=== PATIENT | female | born 1970 | race American Indian/Alaskan Native ===

== ENCOUNTER 2021-03-03 09:41 | Emergency (ER) | payer BC ==
[2021-03-03 11:24] LABS: Mean Corpuscular HGB Conc 26 % (30-34); Platelet Count 583 K/mm3 (140-440); Red Blood Count 3.43 M/mm3 (3.65-5.03)
[2021-03-03 11:38] LABS: Hemoglobin 4.7 gm/dl (10.1-14.3)
[2021-03-03 11:39] LABS: Hematocrit 18.3 % (30.3-42.9); Mean Corpuscular Volume 53 fl (79-97); Red Cell Distribution Width 26.3 % (13.2-15.2)
[2021-03-03 11:42] LABS: Alanine Aminotransferase 5 units/L (7-56); Blood Urea Nitrogen 8 mg/dL (7-17); Calcium 8.5 mg/dL (8.4-10.2); Hemolysis Index 0
[2021-03-03 11:44] LABS: BUN/Creatinine Ratio 13
[2021-03-03] MEDS ORDERED: SODIUM CHLORIDE 0.9% 500 ML 500 ML IV ONE (11:50)
--- NOTE | 2021-03-03 12:05 | Emergency Department Report ---
ED General Adult HPI - General Chief complaint: Dizziness Stated complaint: NEED BLOOD TRANSFUSION Source: patient Mode of arrival: Ambulatory Limitations: No Limitations - History of Present Illness Initial comments: Chief complaint: "My hemoglobin is 4." HPI: This is a 50-year-old female with a history of anemia, hypertension and uterine fibroids who presents with abnormal blood work. She started with a new PCP on yesterday. Dr. Rasta Olmos contacted her. He informed her hemoglobin 4. Patient has had dizziness near syncope over the last several weeks. She has had heavy menstrual bleeding for several years. Menstrual cycles are still heavy that she wears an adult diaper. She is not currently bleeding. She has not had transfusion previously. She did require iron therapy in adolescence. -: Gradual, week(s) (Several weeks of dizziness), month(s) (Several months of fatigue), year(s) (Several years of heavy vaginal bleeding) Severity scale (0 -10): 0 Consistency: intermittent Improves with: rest Worsens with: movement Associated Symptoms: shortness of breath, other (Dizziness fatigue near syncope) - Related Data Previous Rx's Medication Instructions Recorded Last Taken Type Ciprofloxacin 0.3% (Nf) 2 ml OP Q15MIN #1 bottle 07/23/13 Unknown Rx [Ciprofloxacin OPTH] Ketorolac Ophth Soln (Nf) [Acular 1 drop OP BID PRN #1 bottle 07/23/13 Unknown Rx Ophth Soln 0.5%] Acetaminophen/Codeine 1 tab PO Q6H PRN #20 tab 01/04/14 Unknown Rx [Acetaminophen-Codeine #3 TAB] Cephalexin [Keflex] 500 mg PO BID #20 capsule 01/04/14 Unknown Rx Sulfamethoxazole/Trimethoprim 1 each PO BID #20 tablet 01/04/14 Unknown Rx [Bactrim Ds] Ferrous Sulfate [Ferrous Sulfate 1 tab PO TID 30 Days #90 03/03/21 Unknown Rx 324 MG] Allergies Allergy/AdvReac Type Severity Reaction Status Date / Time No Known Allergies Allergy Verified 03/03/21 10:02 ED Review of Systems ROS: Stated complaint: NEED BLOOD TRANSFUSION Other details as noted in HPI Comment: All other systems reviewed and negative Constitutional: denies: chills, fever, malaise Respiratory: shortness of breath Cardiovascular: palpitations. denies: chest pain Gastrointestinal: denies: abdominal pain, nausea, vomiting ED Past Medical Hx - Past Medical History Previous Medical History?: Yes Hx Hypertension: Yes (no meds) Additional medical history: Anemia, uterine fibroids, vaginal delivery x 3 - Surgical History Past Surgical History?: Yes Additional Surgical History: tubal ligation 1995 - Social History Smoking Status: Current Every Day Smoker Substance Use Type: Alcohol, Non Opiate Pain - Medications Home Medications: Home Medications Medication Instructions Recorded Confirmed Last Taken Type Ciprofloxacin 0.3% (Nf) 2 ml OP Q15MIN #1 bottle 07/23/13 Unknown Rx [Ciprofloxacin OPTH] Ketorolac Ophth Soln (Nf) [Acular 1 drop OP BID PRN #1 bottle 07/23/13 Unknown Rx Ophth Soln 0.5%] Acetaminophen/Codeine 1 tab PO Q6H PRN #20 tab 01/04/14 Unknown Rx [Acetaminophen-Codeine #3 TAB] Cephalexin [Keflex] 500 mg PO BID #20 capsule 01/04/14 Unknown Rx Sulfamethoxazole/Trimethoprim 1 each PO BID #20 tablet 01/04/14 Unknown Rx [Bactrim Ds] Ferrous Sulfate [Ferrous Sulfate 1 tab PO TID 30 Days #90 03/03/21 Unknown Rx 324 MG] ED Physical Exam - General Limitations: No Limitations General appearance: alert, in no apparent distress - Head Head exam: Present: atraumatic, normocephalic - Eye Eye exam: Present: normal appearance - ENT ENT exam: Present: mucous membranes moist - Neck Neck exam: Present: normal inspection, full ROM - Respiratory Respiratory exam: Present: normal lung sounds bilaterally. Absent: respiratory distress, wheezes, rhonchi, stridor - Cardiovascular Cardiovascular Exam: Present: normal rhythm, tachycardia, normal heart sounds. Absent: systolic murmur, diastolic murmur, rubs, gallop - GI/Abdominal GI/Abdominal exam: Present: soft, normal bowel sounds. Absent: distended, tenderness, guarding, rebound - Extremities Exam Extremities exam: Present: normal inspection - Neurological Exam Neurological exam: Present: alert, oriented X3 - Psychiatric Psychiatric exam: Present: normal affect, normal mood - Skin Skin exam: Present: warm, dry, intact, normal color. Absent: rash ED Course Vital Signs 03/03/21 03/03/21 03/03/21 09:59 12:36 14:35 Temperature 98.9 F Pulse Rate 104 H 99 H Respiratory 14 20 18 Rate Blood Pressure Blood Pressure 153/82 144/83 [Left] O2 Sat by Pulse 100 100 100 Oximetry 03/03/21 03/03/21 03/03/21 15:25 15:40 16:09 Temperature 98.5 F 98.6 F 98.7 F Pulse Rate 88 86 82 Respiratory 16 16 16 Rate Blood Pressure 148/88 148/88 150/96 Blood Pressure [Left] O2 Sat by Pulse 100 100 100 Oximetry ED Medical Decision Making - Lab Data Result diagrams: 03/03/21 18:01 03/03/21 10:48 - Medical Decision Making Microcytic anemia with mild symptoms. Suspect iron deficiency in addition to menometrorrhagia with uterine fibroids. Ms. Pires will receive 1 unit packed red blood cells. She will be discharged once transfusion is complete. I have provided referral to a and p mechanic. Also recommended that she follows up with her PCP Dr. Rasta Olmos I prescribed iron sulfate tablets. Critical care attestation.: If time is entered above; I have spent that time in minutes in the direct care of this critically ill patient, excluding procedure time. ED Disposition Clinical Impression: Microcytic anemia, Symptomatic anemia, Fibroid, uterine, Dysfunctional uterine bleeding Disposition: 01 HOME / SELF CARE / HOMELESS Is pt being admited?: No Does the pt Need Aspirin: No Condition: Stable Instructions: Preventing Iron Deficiency Anemia, Adult, Uterine Fibroids, Blood Transfusion, Adult, Care After, [id number] Prescriptions: Ferrous Sulfate [Ferrous Sulfate 324 MG] 1 tab PO TID 30 Days #90 Referrals: RASTA OLMOS MD [Primary Care Provider] - 3-5 Days LILLIANA WALLACE MD [Staff Physician] - 3-5 Days Forms: Work/School Release Form(ED)
[2021-03-03 13:01] LABS: Total Cells Counted 100
[2021-03-03 13:02] LABS: Giant Platelets Few; Hypochromasia 3+; Platelet Estimate Consistent w Auto; Target Cells Few
[2021-03-03] MEDS ORDERED: SODIUM CHLORIDE 0.9% 500 ML 500 ML ONE (15:19)
[2021-03-03 16:16] VITALS: BP 150/96
[2021-03-03 18:54] LABS: Hemoglobin 5.6 gm/dl (10.1-14.3)
== END 2021-03-04 03:26 | disposition home or self-care (01) ==
LOC: ED 09:41
DX: D50.9 Iron deficiency anemia, unspecified (principal); D64.89 Other specified anemias; D21.9 Benign neoplasm of connective and other soft tissue, unspecified; N93.8 Other specified abnormal uterine and vaginal bleeding; I10 Essential (primary) hypertension; Z98.51 Tubal ligation status; F17.200 Nicotine dependence, unspecified, uncomplicated; Z79.899 Other long term (current) drug therapy
CPT/HCPCS: 36415; 36430; 80053; 85007; 85014; 85018; 85025; 86850; 86900; 86901; 86920; 96360; 99283; J7040; P9016; 99284

== ENCOUNTER 2021-04-03 18:13 | Observation (INO) | payer BC ==
[2021-04-03] MEDS ORDERED: DOCUSATE SODIUM 100 MG CAP PO PRN (18:16)
[2021-04-03] MEDS ORDERED: ACETAMINOPHEN 325 MG TAB PO PRN (18:16)
[2021-04-03] MEDS ORDERED: SODIUM CHLORIDE 0.9% 500 ML 500 ML IV ONE (18:18)
[2021-04-03] MEDS ORDERED: NON-FORMULARY EACH (Ferrous Sulfate [Ferrous Sulfate 324 Mg] 324 MG Tablet.Dr) PO SCH (20:00)
[2021-04-03] MEDS ORDERED: FERROUS SULFATE 325 MG TAB PO SCH (20:00)
[2021-04-04] MEDS ORDERED: amLODIPine 10 MG TAB PO SCH (10:00)
[2021-04-04] MEDS ORDERED: ACETAMINOPHEN 325 MG TAB PO PRN (15:30)
[2021-04-04 15:57] LABS: Mean Corpuscular HGB Conc 28 % (30-34); Platelet Count 345 K/mm3 (140-440); Red Blood Count 4.28 M/mm3 (3.65-5.03)
[2021-04-04 15:59] LABS: Hematocrit 25.2 % (30.3-42.9); Hemoglobin 6.9 gm/dl (10.1-14.3); Mean Corpuscular Volume 59 fl (79-97); Red Cell Distribution Width 30.6 % (13.2-15.2)
[2021-04-04] MEDS ORDERED: SODIUM CHLORIDE 0.9% 500 ML 500 ML IV SCH (16:00)
[2021-04-04] MEDS ORDERED: ACETAMINOPHEN 500 MG TAB PO PRN (16:00)
[2021-04-04] MEDS ORDERED: DOCUSATE SODIUM 100 MG CAP PO PRN (16:00)
[2021-04-04 16:53] LABS: Anisocytosis 3+; Giant Platelets Few; Hypochromasia 3+; Platelet Estimate Consistent w Auto; Schistocytes 1+; Target Cells 1+; Total Cells Counted 100
[2021-04-04] MEDS: FERROUS SULFATE 325 MG TAB PO SCH ×2 (17:05→20:47)
[2021-04-04] MEDS ORDERED: ZOLPIDEM 5 MG TAB PO PRN (18:23)
--- NOTE | 2021-04-04 18:37 | Short Stay Summary ---
Short Stay Documentation Date of service: 04/04/21 Narrative H&P: This is a 50 year-old female who has a long history fo menorrhagia and fibroids. She also has a hgb of 6.7 in the office ~2weeks ago and now sates she has episodes of lightheadedness and dizziness that can interfere with her ability to work and her QOL. She's had intermittent bleeding since her office visit but today states her bleedig has increased. She admitted now for PRBC transfusion d/t symptomatic anemia - History Past Medical History: hypertension Past Surgical History: Other (BTL) Social history: smoking - Allergies and Medications Current Medications: Allergies No Known Allergies Allergy (Verified 03/03/21 10:02) Home Medications Medication Instructions Recorded Confirmed Last Taken Type Ciprofloxacin 0.3% (Nf) 2 ml OP Q15MIN #1 bottle 07/23/13 Unknown Rx [Ciprofloxacin OPTH] Ketorolac Ophth Soln (Nf) [Acular 1 drop OP BID PRN #1 bottle 07/23/13 Unknown Rx Ophth Soln 0.5%] Acetaminophen/Codeine 1 tab PO Q6H PRN #20 tab 01/04/14 Unknown Rx [Acetaminophen-Codeine #3 TAB] Cephalexin [Keflex] 500 mg PO BID #20 capsule 01/04/14 Unknown Rx Sulfamethoxazole/Trimethoprim 1 each PO BID #20 tablet 01/04/14 Unknown Rx [Bactrim Ds] Ferrous Sulfate [Ferrous Sulfate 1 tab PO TID 30 Days #90 03/03/21 Unknown Rx 324 MG] Active Medications Acetaminophen (Acetaminophen 500 Mg Tab) 1,000 mg PO Q6H PRN PRN Reason: Pain,MILD(1-3)/FEVER>100.5/KHALIL Amlodipine Besylate (Amlodipine 10 Mg Tab) 10 mg PO QDAY [facility] Docusate Sodium (Docusate Sodium 100 Mg Cap) 100 mg PO Q12H PRN PRN Reason: Constipation Ferrous Sulfate (Ferrous Sulfate 325 Mg Tab) 325 mg PO TID [facility] Last Admin: 04/04/21 17:05 Dose: 325 mg Sodium Chloride (Nacl 0.9% 500 Ml) 500 mls @ 999 mls/hr IV ONCE@1600 [facility] Stop: 04/04/21 21:00 Last Admin: 04/04/21 17:06 Dose: 999 mls/hr Medroxyprogesterone Acetate (Medroxyprogesterone Acetate 5 Mg Tab) 10 mg PO QDAY G[facility] Zolpidem Tartrate (Zolpidem 5 Mg Tab) 5 mg PO QHS PRN PRN Reason: Sleep - Physical exam General appearance: no acute distress - Hospital course Hospital course: Normal, feels better, desires discharge home - Disposition Condition at discharge: Good Disposition: 01 HOME / SELF CARE / HOMELESS - Discharge Diagnoses (1) Anemia Status: Chronic Qualifiers: Iron deficiency anemia type: chronic blood loss (2) Fibroids Status: Chronic (3) Menorrhagia Status: Acute (4) Hypertension Status: Chronic (5) Smoker Status: Chronic (6) Body mass index between 30-39, adult Status: Acute Short Stay Discharge Plan Activity: no restrictions Weight Bearing Status: Full Weight Bearing Diet: low fat, low cholesterol, low salt Additional Instructions: Continue Tranexamic acid as directed. Take iron three times a day and a stool softener as needed Follow up with: TANNER OLMOS MD [Primary Care Provider] - 7 Days LILLIANA WALLACE MD [Staff Physician] - 04/09/21 10:45 am ([place] office) KIRSTY SIDDIQUI MD [Referring] - 7 Days (To be evaluated for Iron infusion to prepare for surgery) Forms: Work/School Release Form
[2021-04-04] MEDS: medroxyPROGESTERone ACETATE 5 MG TAB PO SCH (20:46)
[2021-04-04] MEDS: amLODIPine 10 MG TAB PO SCH (21:30)
[2021-04-05 01:09] LABS: Hematocrit 28.8 % (30.3-42.9); Hemoglobin 8.2 gm/dl (10.1-14.3)
[2021-04-05 09:14] VITALS: BP 141/82
[2021-04-05] MEDS: medroxyPROGESTERone ACETATE 5 MG TAB PO SCH (10:10)
[2021-04-05] MEDS: FERROUS SULFATE 325 MG TAB PO SCH (10:11)
[2021-04-05] MEDS: amLODIPine 10 MG TAB PO SCH (10:11)
== END 2021-04-05 11:05 | disposition home or self-care (01) ==
LOC: UNDOADMOB 18:13 → 3A 18:13 → OB 04-04 11:45
PROVIDERS: ADMIT Obstetrics & Gynecology; ATTEND Obstetrics & Gynecology
DX: D21.9 Benign neoplasm of connective and other soft tissue, unspecified (principal); Z20.822 Contact with and (suspected) exposure to COVID-19; N92.0 Excessive and frequent menstruation with regular cycle; D64.9 Anemia, unspecified; F17.200 Nicotine dependence, unspecified, uncomplicated; Z68.30 Body mass index [BMI] 30.0-30.9, adult; Z98.51 Tubal ligation status
CPT/HCPCS: 36415; 36430; 85014; 85018; 85025; 86850; 86900; 86901; 86920; G0378; G0379; J7040; P9016; U0003; 85007

== ENCOUNTER 2021-05-29 06:07 | Observation (INO) | payer BC ==
[2021-05-23 10:11] LABS: Hematocrit 29.9 % (30.3-42.9); Hemoglobin 9.2 gm/dl (10.1-14.3); Mean Corpuscular HGB Conc 31 % (30-34); Mean Corpuscular Volume 67 fl (79-97); Platelet Count 325 K/mm3 (140-440); Red Blood Count 4.47 M/mm3 (3.65-5.03); Red Cell Distribution Width 29.5 % (13.2-15.2)
--- NOTE | 2021-05-23 10:55 | Anesthesia Consultation ---
Anesthesia Consult and Med Hx Date of service: 05/29/21 - Airway Anesthetic Teeth Evaluation: Good ROM Head & Neck: Adequate Mental/Hyoid Distance: Adequate Mallampati Class: Class I Intubation Access Assessment: Good - Pre-Operative Health Status ASA Pre-Surgery Classification: ASA2 Proposed Anesthetic Plan: General Nerve Block: TAP - Pulmonary Hx Smoking: Yes (Pt. has smoked for 20 years QUIT APPROX. 05/15/21) Hx Asthma: No Hx Respiratory Symptoms: No (+2FS) COPD: No Hx Pneumonia: No Hx Sleep Apnea: No - Cardiovascular System Hx Hypertension: Yes (no meds) Hx Heart Attack/AMI: No (Recent ETT/ECG; pt reports cardiac clearance) - Central Nervous System Hx Back Pain: Yes Hx Psychiatric Problems: No - Gastrointestinal Hx Gastroesophageal Reflux Disease: No - Endocrine Hx End Stage Renal Disease: No - Hematic Hx Anemia: Yes Hx Sickle Cell Disease: No - Other Systems Hx Alcohol Use: No Hx Substance Use: No Hx Cancer: No Hx Obesity: Yes
[2021-05-23 10:58] LABS: Anisocytosis 3+; Hypochromasia 2+; Total Cells Counted 100
[2021-05-23 11:00] LABS: Platelet Estimate Consistent w Auto
--- NOTE | 2021-05-27 15:31 | History and Physical Report ---
History of Present Illness Date of examination: 05/21/21 Chief complaint: Menorrhagia, fibroids, dysmenorrhea and anemia History of present illness: This is a 50 years old female who presents with menstrual disorder. The symptoms began >1 year ago. She complains of heavy bleeding and history of fibroids. Menstrual flow lasts 7 days. She complains of bleeding heavy 3/7days that requires pads and Depends . She had an US at [facility] 2019 that showed fibroids. She was scheduled to have a hysterectomy 2019 but d/t her lack of insurance she was unable to proceed as scheduled. She has a history of severe anemia d/t menorrhagia, her hgb was 4.7 and she received 1unit of PRBCs February 2021. Past History : 4 Term Births: 1 Premature Births: 1 Living Children: 2 Spont. Ab: 2 # 1 Delivery date: 1990 Weeks Gestation: 21 Delivery type: Comments: demise # 2 Delivery date: 1992 Weeks Gestation: 21 Delivery type: Sex: Male weight: 2# # 3 Delivery date: 1994 Weeks Gestation: FT Delivery type: Infant Sex: Female weight: 7# [employer] History Operations: Tubal Ligation Abnormal PAP: positive Uterine Anomaly: positive fibroids Infection History HIV Risk Eval: no Hx of STD: None Active Medications (reviewed today): tranexamic acid 650 mg tablet (tranexamic acid) Take 2 tablet by mouth three times a day as needed only take on heaviest days of menses/periods up to 5 days a month ferrous sulfate 324 mg (65 mg iron) tablet,delayed release (DR/EC) (ferrous sulfate) TAKE ONE TABLET BY MOUTH THREE TIMES A DAY amlodipine 10 mg tablet (amlodipine) ibuprofen 800 mg tablet (ibuprofen) Current Allergies (reviewed today): No known allergies Past Medical History: Reviewed history from 04/16/2021 and no changes required: Anemia Hypertension Blood Transfusion (03/03/2021) 1uPRBC Blood Transfusion (04/04/2021) 1uPRBC Past Surgical History: Reviewed history from 04/16/2021 and no changes required: Tubal Ligation Family History Summary: Reviewed history and no changes required: 05/27/2021 Other Family Member - Has No Family History of Uterine Cancer - Entered On: 04/04/2021 Other Family Member - Has No Family History of Small Bowel Cancer - Entered On: 04/04/2021 Other Family Member - Has No Family History of Stomach Cancer - Entered On: 04/04/2021 Other Family Member - Has No Family History of Pancreatic Cancer - Entered On: 04/04/2021 Other Family Member - Has No Family History of Ovarvian Cancer - Entered On: 04/04/2021 Other Family Member - Has No Family History of Kidney/Urinary Tract Cancer - Entered On: 04/04/2021 Other Family Member - Has No Family History of Spontaneous DVT-PE - Entered On: 04/04/2021 Other Family Member - Has No Family History of Colon Cancer - Entered On: 04/04/2021 Other Family Member - Has No Family History of Brain Cancer - Entered On: 04/04 Other Family Member - Has No Family History of Breast Cancer - Entered On: 04/04/2021 Other Family Member - Has No Family History of Biliary Tract Cancer - Entered On: 04/04/2021 Social History: Reviewed history from 03/23/2021 and no changes required: Patient is single Smoking History: Patient currently smokes every day. Patient has been counseled to quit. Risk Factors: Smoked Tobacco Use: Former smoker Cigarettes: Yes Year Quit: 2021 Years Since Last Quit: 0 Smokeless Tobacco Use: Never Passive Smoke Exposure: no HIV High Risk Behavior: no Exercise: yes Seatbelt Use: 100 % Alcohol Use: yes Type: occ Drinks per day: social Drug Use: no Previous Tobacco Use: Signed On - 04/16/2021 Smoked Tobacco Use: Current every day smoker Cigarettes: Yes -- 1/2 pack pack(s) per day, Year Started: 1989 Smokeless Tobacco Use: Never Counseled to Quit/Cut Down: yes Passive Smoke Exposure: no HIV High Risk Behavior: no Exercise: yes Times/wk: 5 Type of Exercise: walking Seatbelt Use: 100 % Alcohol Use: yes Type: occ Drinks per day: social Drug Use: no Physical Exam Appearance: well developed, well nourished, no acute distress Other Exams Lungs: no rales, rhonchi, or wheezes Heart: S1, S2, no murmur, rub, or gallop Impression & Recommendations: Problem # 1: Menorrhagia (ICD-626.2) (LBV46-T64.0) Diagnosis explained to patient . Discussed with patient various medical, surgical and radiological therapies common for treatment including, but not limited to, myomectomy, hysterectomy and uterine artery embolization. Discussed risks and benefits of laparotomy, laparoscopy, vaginal and robotic assisted approaches for hysterectomies. Patient desires definitive treatment in the form of robot assisted laparoscopic total hysterectomy. The risks and alternatives for this surgery were reviewed with the patient. She was informed of the risks of the surgery including, but not limited to, pain, infection, bleeding possibly heavy enough to require a blood transfusion with associated risks of infections (hepatitis and HIV) and transfusion reactions, possible damage to bowel, bladder or ureter(s) and surrounding organs. She was also informed of slight increased risk for vaginal cuff breakdown with the robotic approach. Patient understands that this surgery will make her sterile. Indications to abort a robotic/laparoscopic procedure and perform an open proce dure were explained. She desires ovarian conservation. She was informed she may require surgery later to have her ovaries removed for a benign or malignant condition Patient understands if her ovaries are removed she will become menopausal. Patient advised the small risks of spreading of malignancy if morcellation is required during the surgery patient understands and approves performing if necessary. Questions answered. Consent reviewed and signed The patient was instructed/informed the following: The normal length of hospital stay for this procedure. Nothing to eat or drink after midnight the evening prior to surgery.. Pre-op instruction sheets given. Wound care instructions given. 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) (HLY71-Q83.0) Problem # 5: Smoker (ICD-305.1) (PSS08-S26.210) Medications and Allergies Allergies Allergy/AdvReac Type Severity Reaction Status Date / Time No Known Allergies Allergy Verified 03/03/21 10:02 Home Medications Medication Instructions Recorded Confirmed Last Taken Type Ferrous Sulfate [Feosol 325 MG tab] 325 mg PO TID tablet 04/05/21 Unknown Rx Zolpidem [Ambien] 5 mg PO QHS PRN tablet 04/05/21 Unknown Rx amLODIPine 10 mg PO QDAY tablet 04/05/21 Unknown Rx Ibuprofen [Motrin] 800 mg PO PRN PRN 05/21/21 05/21/21 Unknown History Active Meds: Active Medications Acetaminophen (Acetaminophen 500 Mg Tab) 1,000 mg PO ONCE NR Stop: 05/29/21 20:00 Amlodipine Besylate (Amlodipine 10 Mg Tab) 10 mg PO QDAY GAB[facility]EL Celecoxib (Celecoxib 200 Mg Cap) 400 mg PO PREOP NR Stop: 05/29/21 20:00 Fentanyl (Fentanyl 100 Mcg/2 Ml Inj) 100 mcg IV ONCE NR Stop: 05/29/21 20:00 Gabapentin (Gabapentin 300 Mg Cap) 300 mg PO PREOP NR Stop: 05/29/21 20:00 Lactated Ringer's (Lactated Ringers) 1,000 mls @ 125 mls/hr IV DIRECT GABRIEL Cefazolin Sodium (Ancef/Sterile Water 2 Gm/20 Ml) 2 gm in 20 mls @ 80 mls/hr IV PREOP NR; Protocol Magnesium Oxide (Magnesium Oxide 400 Mg Tab) 400 mg PO ONCE NR Stop: 05/29/21 20:00 Methocarbamol (Methocarbamol 750 Mg Tab) 1,500 mg PO ONCE NR Stop: 05/29/21 20:00 Midazolam HCl (Midazolam 2 Mg/2 Ml Inj) 2 mg IV PREOP NR Stop: 05/29/21 23:59 Exam Vital Signs Temp Pulse Resp BP Pulse Ox 98.2 F 79 16 150/98 100 05/23/21 09:20 05/23/21 09:20 05/23/21 09:20 05/23/21 09:20 05/23/21 09:20 Results - Labs 05/23/21 06:00 Assessment and Plan - Patient Problems (1) Menorrhagia Status: Chronic (2) Dysmenorrhea Status: Chronic (3) Fibroids Status: Chronic (4) Anemia Status: Chronic Qualifiers: Iron deficiency anemia type: chronic blood loss (5) Hypertension Status: Chronic (6) Smoker Status: Chronic (7) Body mass index between 30-39, adult Status: Chronic
[~2021-05-29 06:07] MED LIST: CELECOXIB 200 MG CAP PO NR; GABAPENTIN 300 MG CAP PO NR; LACTATED RINGERS 1,000 ML IV SCH; MAGNESIUM OXIDE 400 MG TAB PO NR; MIDAZOLAM 2 MG/2 ML INJ IV NR; ceFAZolin/Water 2 GM/20 ML 2 GM/20 ML SYRINGE IV NR; fentaNYL 100 MCG/2 ML INJ IV NR
[2021-05-29] MEDS: ACETAMINOPHEN 500 MG TAB PO NR ×2 (07:00→16:22)
[2021-05-29] MEDS ORDERED: LIDOCAINE MPF (2%) 20 MG/1 ML VIAL 5 ML ONE (07:14)
[2021-05-29] MEDS ORDERED: propofoL 200 MG/20 ML VIAL IV ONE (07:15)
[2021-05-29] MEDS ORDERED: KETAMINE/STERILE WATER 50 MG/ML SYRINGE ONE (07:22)
[2021-05-29] MEDS ORDERED: NEOMY 40 MG/POLYMYXIN B 200,000 UNITS/ML (GU) AMPULE IR ONE ×2 (07:25→09:20)
[2021-05-29] MEDS ORDERED: BUPIVACAINE/PF (0.25%) 2.5 MG/ML 30 ML VIAL INFILTRATI ONE (07:29)
[2021-05-29] MEDS ORDERED: dexAMETHasone 4 MG/ML VIAL ONE (07:30)
--- NOTE | 2021-05-29 07:30 | Anesthesia Day of Surgery ---
Anesthesia Day of Surgery - Day of Surgery Patient Examined: Yes Patient H&P Reviewed: Yes Patient is NPO: Yes
[2021-05-29] MEDS ORDERED: LIDOCAINE (1%) 10 MG/1 ML VIAL 20 ML MDV ONE (07:38)
[2021-05-29] MEDS ORDERED: HYDROmorphone 1 MG/1 ML INJ IV PRN (08:00)
[2021-05-29] MEDS ORDERED: ONDANSETRON 4 MG/2 ML INJ IV PRN ×2 (08:00→14:06)
[2021-05-29] MEDS ORDERED: ceFAZolin/Water 2 GM/20 ML 2 GM/20 ML SYRINGE IV ONE (08:03)
[2021-05-29] MEDS ORDERED: SODIUM CHLORIDE 0.9% IRRIG SOLN 2000 ML IR ONE (09:20)
[2021-05-29] MEDS ORDERED: ANTICOAGULANT SOD CITRATE SOLUTION MC ONE (09:20)
[2021-05-29] MEDS ORDERED: amLODIPine 10 MG TAB PO SCH (10:00)
[2021-05-29] MEDS ORDERED: ePHEDrine SULFATE 50 MG/1 ML INJ ONE (10:05)
[2021-05-29] MEDS ORDERED: KETOROLAC 30 MG/1 ML INJ ONE (10:51)
[2021-05-29] MEDS ORDERED: LACTATED RINGERS 1,000 ML ONE ×2 (10:51→12:27)
[2021-05-29] MEDS ORDERED: ROCURONIUM 50 MG/5 ML INJ IV ONE ×2 (10:51→11:15)
[2021-05-29] MEDS ORDERED: ONDANSETRON 4 MG/2 ML INJ ONE ×2 (10:51→12:28)
[2021-05-29] MEDS ORDERED: ceFAZolin 1 GM VIAL ONE (12:01)
[2021-05-29] MEDS ORDERED: SODIUM CHLORIDE P/F VIAL 10 ML 10 ML ONE (12:01)
[2021-05-29] MEDS ORDERED: GLYCOPYRROLATE 0.4 MG/2 ML INJ ONE (12:24)
[2021-05-29] MEDS ORDERED: NEOSTIGMINE 10MG/10 ML INJ MDV ONE (12:24)
[2021-05-29] MEDS ORDERED: HYDROmorphone 1 MG/1 ML INJ ONE (12:32)
[2021-05-29] MEDS: HYDROmorphone 1 MG/1 ML INJ IV PRN ×2 (13:05→13:15)
--- NOTE | 2021-05-29 13:42 | Post Anesthesia Evaluation ---
- Post Anesthesia Evaluation Patient Participated: Yes Airway Patent: Yes Stable Respiratory Function: Yes Nausea/Vomiting: No Temp > 96.8F: Yes Pain Manageable: Yes Adequeate Hydration: Yes Anesthesia Complications: No Block Receding Appropriately: Yes Patient on Ventilator: No
[2021-05-29] MEDS ORDERED: ONDANSETRON 4 MG ODT TAB PO PRN (14:06)
[2021-05-29] MEDS ORDERED: traMADol 50 MG TAB PO PRN (14:06)
[2021-05-29] MEDS ORDERED: LACTATED RINGERS 1,000 ML IV SCH (14:06)
[2021-05-29] MEDS ORDERED: ceFAZolin/NS 1 GM/50 ML 1 GM/50 ML BAG IV SCH (14:06)
[2021-05-29] MEDS: MORPHINE 2 MG/1 ML INJ IV PRN (14:21)
--- NOTE | 2021-05-29 14:33 | Operative Report ---
Operative Report Operative Report: Date: 05/29/2021 Preoperative diagnosis: 1. Menorrhagia 2. Dysmenorrhea 3. Body mass index of 32.9 kg/m 4. Anemia 5. Uterine fibroid 6. Hypertension 7. Smoker Postoperative diagnosis: 1. Menorrhagia 2. Dysmenorrhea 3. Body mass index of 32.9 kg/m 4. Anemia 5. Uterine fibroid 6. Hypertension 7. Smoker 8. Extensive abdominal pelvic adhesion 9. Large right ovary 10. Left ovarian cyst Procedure: 1. Robotic-assisted laparoscopic total hysterectomy with bilateral salpingectomy 2. Lysis of adhesions 3. Right ovarian oophorectomy 4. Left ovarian cystectomy Surgeon: Aicha Small MD Computer Aide: Mariajose Cosby MD Anesthesiologist: Dr. Tineo Anesthesia: General endotracheal anesthesia EBL: Approximately [] mL Findings: EUA: Uterus palpated to approximately 16-18 weeks. Uterus was sounded to 14 cm. Multiple uterine fibroids, large right ovary, multiple extensive adhesions, left ovarian cyst. Procedure: Patient was taken to the OR and placed in the supine position. General anesthesia was induced and an oral gastric tube was placed. Her neck and head were placed on foam support. Foam eye protection with goggles were secured in place. Then foam face protection was placed and secured. Foam shoulder pads were then positioned on her shoulders for Trendelenburg positioning. She was then placed in dorsolithotomy position. Exam under anesthesia as above. The abdomen and vagina were then prepped and draped in the usual sterile fashion. Timeout was performed. A Adame catheter was inserted into the bladder with drainage of clear yellow urine. The operative speculum was introduced into the vagina and the anterior lip of the cervix was grasped with single-toothed tenaculum. The uterus was sounded to 14 cm. The cervix was progressively dilated to allow the large V care uterine manipulator. The bulb of the manipulator was inflated and the speculum and tenaculum were removed. The cup of the manipulator was placed around the cervix and the blue occluder of the manipulator was properly positioned in the vagina and secured. A laparotomy sponge that was saturated with a solution of polymyxin and saline was placed in the vagina to ensure pneumoperitoneum. Sterile gloves were placed and attention was turned to the abdomen. A 10 mm midline vertical supraumbilical incision was made approximately 10 cm superior to the elevated fundus of the uterus. A 10-12 mm trocar with the laparoscope and camera attached was introduced through this incision under direct visualization. The abdomen was insufflated. No obvious bowel, bladder, ureteral, or major vascular injury was noted. Extensive adhesions were noted involving the omentum to the midline and right mid region of the abdomen. The midline adhesions extended to the pelvis. The left midclavicular abdominal re gion was visualized with the laparoscope. No adhesions were noted. An 8 mm robotic trocar was placed through this area under direct visualization after an incision was made. No obvious bowel bladder or ureteral or major vascular injury was noted. A 5 mm laparoscope with camera was placed through the 8 mm left trocar. Using the EndoShears that was placed in the midline 10-12 port at 30 W of energy the adhesions were released. Once the right abdominal region was able to be visualized an incision was made and the 8 mm robotic trocar was placed under direct visualization. Again no bowel bladder or ureteral major vascular injury was noted. Once hemostasis was assured on the omentum that was released, the patient was then placed in steep Trendelenburg position and a 5 mm trocar was placed through an incision made in the right lower lateral pelvis. The 10 mm laparoscope was then replaced by a 5 mm laparoscope that was placed through the 5 millimeter lateral trocar. The midline trocar was then removed and the Charlie Jennings fascial closure device was placed through the incision and a 0 Vicryl was placed through the fascia. Once the suture was secured the trocar was reintroduced. Once the trochars were in the appropriate positions, the da Sera robot system was engaged. The EndoShears and bipolar device was placed through the 8 mm trochars and positioned then attention was turned to the console. The uterus was elevated and bilateral salpingectomy was performed. Each tube was removed through the 5 mm trocar and sent to pathology in separate containers. Then the utero-ovarian ligaments were clamped. cauterized and incised bilaterally using 30 W of energy. Then the round ligaments were clamped, cauterized and incised bilaterally. The anterior leaf of the broad ligament was elevated and with careful blunt and sharp dissection the bladder flap was created and dissected away from the lower uterine segment and cervix. The posterior leaf of the broad ligament was dissected away from the uterine vessels. The cup of the uterine manipulator was palpated both anteriorly and posteriorly. The bladder was further dissected away from the lower uterine segment. The uterine vessels were then clamped and cauterized bilaterally. Blanching of the uterus was then noted. Attention was again turned to the anterior lower uterine segment and the bladder was confirmed to be away from the operative field. Then attention was turned again to the posterior where the cup of the manipulator was palpated and a colpotomy was performed down to the cup. The incision was extended in the lateral position to the uterine vessels that were again clamped and cauterized and incised. Continuing along the cup of the manipulator in a circumferential manner the colpotomy was completed. Multiple attempts were made to remove the uterus and cervix intact through the vaginal incision however due to its large size attention was turned back to the console where fibroids were removed to reduce the size of the uterus to allow the uterus and cervix to be removed through the vaginal incision. The 2 fibroids that were excised were then removed through the vagina. The pelvis was irrigated with warm normal saline. A moist laparotomy sponge was placed in the vagina to maintain pneumoperitoneum. Attention were then turned to the right ovary, oophorectomy was performed in the usual fashion after the course of the ureter was noted to be away from the operative field. The ovary was then placed in an Endo Catch bag that was inserted through the vagina incision and removed intact. The specimen was sent to pathology for frozen section evaluation. Dr. Costello called stating ovary appeared to be a benign dermoid therefore frozen section studies were canceled. The pelvis was irrigated with normal saline and the vaginal cuff was approximated using V LOC 180 suture. Then a J stitch was performed to secure the suture. Again the pelvis was copiously irrigated with polymixin in warm normal saline. The laparotomy sponge was removed from the vagina. No obvious evidence of bowel, bladder, ureteral, or major vascular injury was noted. Patient appeared to have an approximately 1 cm hemorrhagic cyst on the left ovary that was excised and removed through the 5 mm trocar. Once hemostasis was noted, the pelvis was again irrigated with warm normal saline. The pelvis and abdomen were thoroughly inspected hemostasis was noted. Also no obvious bowel, bladder or ureteral injury was noted. Then the instruments were removed, the robot was disengaged. The 12 mm trocar was removed and the fascia was ligated with the 0 Vicryl suture that was placed at the beginning of the procedure. The patient was taken out of Trendelenburg position, the abdomen was desufflated, the remaining trochars were removed. Incisions were reapproximated using 4-0 Monocryl in a subcuticular manner. Surgiseal was placed over the other incisions. The vagina was then inspected, the cuff was palpated to be intact and no bleeding was noted and clear yellow urine was draining into the Adame bag from the bladder at the end of the procedure. Counts were correct 3. Patient was taken to recovery room in stable condition.
[2021-05-29] MEDS: amLODIPine 10 MG TAB PO SCH (15:35)
[2021-05-29] MEDS ORDERED: MORPHINE 2 MG/1 ML INJ IV ONE (15:50)
[2021-05-29] MEDS ORDERED: SIMETHICONE 80 MG CHEW TAB PO PRN (15:51)
--- NOTE | 2021-05-29 15:55 | Progress Note ---
Assessment and Plan Doing well, states she took her Amlodipine this am. Copious clear UO noted into correa bag. Rectal pressure resolved when she was placed in flat supine position for anal exam, did not recur when her head was elevated again. She then stated her pain was like gas involving the left abdomen/pelvic area and she thought the pressures may be from the correa catheter. While explaining operative findings and procedures she kept closing her eyes without without grimace, however continued to voice a pain level of 7/10. Plan for pain management and postoperative care discussed, questions encouraged and answered. She voiced understanding and agrees with plan of care. - Patient Problems (1) History of robot-assisted laparoscopic hysterectomy Current Visit: Yes Status: Acute (2) S/P right oophorectomy Current Visit: Yes Status: Acute Plan to address problem: Dermoid by visual evaluation by Pathology (3) Pelvic adhesive disease Current Visit: Yes Status: Chronic (4) Hypertension Current Visit: No Status: Chronic (5) Anemia Current Visit: No Status: Chronic Qualifiers: Iron deficiency anemia type: chronic blood loss (6) Smoker Current Visit: No Status: Chronic (7) Body mass index between 30-39, adult Current Visit: No Status: Chronic (8) Menorrhagia Current Visit: No Status: Resolved (9) Dysmenorrhea Current Visit: No Status: Resolved (10) Fibroids Current Visit: No Status: Resolved Subjective - Subjective Date of service: 05/29/21 Principal diagnosis: DOD s/p RALTH, (R)SO, MATTHIAS (L) ov c'ectomy Interval history: Patient sleepy but appropriately responsive, initially complained of rectal pressure described as pain level 7/10 Patient reports: no nauseated Objective - Vital Signs Latest vital signs: Vital Signs Temp Pulse Resp BP Pulse Ox 05/29/21 13:45 80 139/86 100 05/29/21 13:30 88 15 134/76 99 05/29/21 13:15 18 05/29/21 13:05 18 05/29/21 12:45 97.0 F L 99 H 22 127/85 100 05/29/21 08:35 18 05/29/21 08:00 18 05/29/21 07:50 74 18 118/72 100 05/29/21 07:45 80 18 125/78 99 05/29/21 07:40 75 16 125/84 96 05/29/21 07:35 76 14 132/85 100 05/29/21 07:30 73 16 138/86 100 05/29/21 07:15 99.5 F 74 18 118/72 100 05/29/21 07:00 18 05/29/21 06:35 99.5 F 75 16 132/85 100 Intake and Output 05/29/21 05/29/21 05/29/21 06:59 14:59 22:59 Intake Total 100 Output Total 400 Balance -300 Intake: IV 100 Output: Urine 400 Other: Voiding Method Toilet - Exam Breasts: Present: deferred Abdomen: Present: normal appearance, soft, normal bowel sounds. Absent: distention, tenderness, guarding Vulva: both: normal (no bleeding, anus with any lesions) Extremities: Present: other (SCD's in place and functioning appropriately) Incision: Present: normal, dry, intact
[2021-05-29] MEDS: FAMOTIDINE 20 MG/2 ML INJ IV SCH ×2 (16:11→21:47)
[2021-05-29] MEDS ORDERED: ACETAMINOPHEN 325 MG TAB PO SCH (16:30)
[2021-05-29] MEDS: ceFAZolin/NS 1 GM/50 ML 1 GM/50 ML BAG IV SCH (18:07)
[2021-05-29] MEDS ORDERED: PNEUMOCOCCAL 23 Valent 0.5 ML VIAL IM ONE (19:05)
[2021-05-29] MEDS ORDERED: FLU VACC QUAD 2021-22(6MOS UP)/PF 60 MCG/0.5 ML SYRINGE IM ONE (19:05)
[2021-05-29] MEDS ORDERED: KETOROLAC 30 MG/1 ML INJ IV PRN (20:30)
[2021-05-29] MEDS: ACETAMINOPHEN 500 MG TAB PO SCH (21:46)
[2021-05-30] MEDS: ceFAZolin/NS 1 GM/50 ML 1 GM/50 ML BAG IV SCH (01:06)
[2021-05-30] MEDS: MORPHINE 2 MG/1 ML INJ IV PRN (01:19)
[2021-05-30 04:45] LABS: Hematocrit 26.4 % (30.3-42.9)
[2021-05-30] MEDS: ACETAMINOPHEN 500 MG TAB PO SCH ×2 (06:12→10:31)
[2021-05-30] MEDS: oxyCODONE /ACETAMINOPHEN 5-325MG TAB PO PRN ×2 (08:36→13:39)
[2021-05-30] MEDS ORDERED: IBUPROFEN 800 MG TAB PO PRN (09:00)
--- NOTE | 2021-05-30 09:35 | Discharge Summary ---
Providers - Providers Date of Admission: 05/29/21 13:08 Date of discharge: 05/30/21 Attending physician: LILLIANA WALLACE Primary care physician: TANNER OLMOS Hospitalization Condition: Good Procedures: Robotic assisted laparoscopic total hysterectomy, right oophorectomy, left ovarian cystectomy, lysis of adhesions Hospital course: Patient underwent the above procedures. Postop course was unremarkable. Patient experienced flatus on postoperative day 1 was able to void without complication. She desires discharge home. Disposition: 30 STILL A PATIENT Final Discharge Diagnosis (Prints w/discharge instructions): Robotic assisted laparoscopic total hysterectomy, right oophorectomy, left ovarian cystectomy, lysis of adhesions - Discharge Diagnoses (1) History of robot-assisted laparoscopic hysterectomy Status: Acute (2) S/P right oophorectomy Status: Acute (3) Pelvic adhesive disease Status: Chronic (4) Hypertension Status: Chronic (5) Anemia Status: Chronic Qualifiers: Iron deficiency anemia type: chronic blood loss (6) Smoker Status: Chronic (7) Body mass index between 30-39, adult Status: Chronic (8) Menorrhagia Status: Resolved (9) Dysmenorrhea Status: Resolved (10) Fibroids Status: Resolved Core Measure Documentation - Palliative Care Palliative Care/ Comfort Measures: Not Applicable - Core Measures Any of the following diagnoses?: none Exam - Physical Exam Narrative exam: Patient is resting in bed. Denies bleeding. States positive flatus and voiding without difficulty. States she has some cramping however able to tolerate a regular diet without nausea or vomiting. - Constitutional Vitals: Temp Pulse Resp BP Pulse Ox 98.2 F 87 20 137/79 100 05/30/21 07:42 05/30/21 07:42 05/30/21 07:42 05/30/21 07:42 05/30/21 07:42 General appearance: Present: no acute distress - Neck Neck: Present: supple - Respiratory Respiratory effort: normal Respiratory: bilateral: CTA - Cardiovascular Rhythm: regular - Extremities Extremities: no ischemia, No edema (Nontender) - Abdominal General gastrointestinal: Present: soft, non-tender, non-distended, normal bowel sounds Female genitourinary: Present: deferred - Integumentary Integumentary: Present: clear, warm, dry (Trocar sites clean, dry, intact. No signs and symptoms of infection or dehiscence.) - Musculoskeletal Musculoskeletal: strength equal bilaterally - Psychiatric Psychiatric: appropriate mood/affect, intact judgment & insight, memory intact, cooperative - Neurologic Neurologic: CNII-XII intact Plan Activity: other (No sex. No driving. Ambulate approximately 1 mile on your property daily. Use your incentive spirometer every hour while awake. Rotate ankles while seated.) Weight Bearing Status: Full Weight Bearing Diet: low fat, low cholesterol, low salt, other (Eat small meals frequently. Drink approximately 90 ounces of water a day. Void every hour to prevent pressure on vaginal cuff. Avoid spicy, high salt high fat foods.) Wound: open to air, keep clean and dry Special Instructions: no heavy lifting (Greater than 10 pounds) Additional Instructions: Alternate Tylenol and ibuprofen as discussed. Make sure to eat prior to taking any pain medication. Follow up with: TANNER OLMOS MD [Primary Care Provider] - 7 Days THOMASTON-KIRSTY CROUCH MD [Referring] - (As scheduled) LILLIANA WALLACE MD [Staff Physician] - (As scheduled) Prescriptions: Docusate Sodium [Colace] 100 mg PO BID PRN #30 capsule PRN Reason: Constipation Docusate Sodium [Colace] 100 mg PO DAILY #30 capsule Ferrous Sulfate [Feosol 325 MG tab] 325 mg PO TID #90 tablet Ibuprofen [Motrin 800 MG tab] 800 mg PO Q8H PRN #30 tablet PRN Reason: Pain, Moderate (4-6) oxyCODONE /ACETAMINOPHEN [Percocet 5/325 mg] 1 - 2 tab PO Q6H PRN #10 tablet PRN Reason: Pain, Moderate (4-6)
[2021-05-30] MEDS: amLODIPine 10 MG TAB PO SCH (10:31)
[2021-05-30] MEDS: FAMOTIDINE 20 MG/2 ML INJ IV SCH (10:32)
[2021-05-30 14:12] VITALS: BP 124/74
== END 2021-05-30 14:05 | disposition still patient (30) ==
LOC: OR 06:07 → OB 13:08
PROVIDERS: ADMIT Obstetrics & Gynecology; ATTEND Obstetrics & Gynecology
DX: N92.0 Excessive and frequent menstruation with regular cycle (principal); Z20.822 Contact with and (suspected) exposure to COVID-19; N94.4 Primary dysmenorrhea; I10 Essential (primary) hypertension; D25.9 Leiomyoma of uterus, unspecified; D25.1 Intramural leiomyoma of uterus; D50.0 Iron deficiency anemia secondary to blood loss (chronic); Z90.710 Acquired absence of both cervix and uterus; Z79.899 Other long term (current) drug therapy; Z98.890 Other specified postprocedural states; Z87.891 Personal history of nicotine dependence; Z98.51 Tubal ligation status; Z68.32 Body mass index [BMI] 32.0-32.9, adult
CPT/HCPCS: 36415; 58554; 58662; 64488; 81025; 85014; 85018; 85025; 86850; 86900; 86901; 88302; 88305; 88307; 88311; 96365; 96366; 96375; 96376; 99406; G0378; J0690; J1100; J1170; J1815; J1885; J2250; J2270; J2704; J2710; J3010; J3490; J7120; S2900; U0003; 64450; 85007; J2405

== ENCOUNTER 2021-06-04 11:26 | Emergency (ER) | payer BC ==
[2021-06-04] MEDS ORDERED: KETOROLAC 10 MG TAB PO ONE (17:00)
[2021-06-04] MEDS ORDERED: ACETAMINOPHEN W/CODEINE 300-30 MG TAB PO ONE (17:00)
--- NOTE | 2021-06-04 18:33 | Vascular Lab Report ---
DUPLEX DOPPLER LOWER EXTREMITY VEINS, RIGHT INDICATION / CLINICAL INFORMATION: pain, s/p surgery.. TECHNIQUE: Duplex doppler imaging was performed through the veins of the right lower extremity using venous compression and other maneuvers. COMPARISON: None available. FINDINGS: RIGHT COMMON FEMORAL VEIN: Negative. RIGHT FEMORAL VEIN: Negative. RIGHT POPLITEAL VEIN: Negative. RIGHT CALF VEINS: Negative. ADDITIONAL FINDINGS: None. IMPRESSION: 1. No sonographic evidence for DVT in the right lower extremity. Signer Name: Ty Harris DO Signed: 06/04/2021 6:28 PM Workstation Name: [id number]
--- NOTE | 2021-06-04 18:37 | Emergency Department Report ---
ED Extremity Problem HPI - General Chief complaint: Extremity Problem,Nontraumatic Stated complaint: RT LEG PAIN Time Seen by Provider: 06/04/21 16:59 Source: patient Mode of arrival: Ambulatory Limitations: No Limitations - History of Present Illness Initial comments: 50-year-old black female with a past medical history of hypertension and anemia presents to the emergency department for evaluation of right leg pain since Friday. She states that she had a laparoscopic hysterectomy on May 29 then on Friday she developed pain to her right leg. She denies any injury or trauma but states this pain has been persistent mostly in the back of her knee that is rated 8 out of 10. She states that she has not had any chest pain, shortness of breath, or hemoptysis. She states that she does not have any increase in pain when she is walking. She denies any swelling to her leg. MD Complaint: extremity pain -: Sudden, days(s) (3) Location: right, lower extremity History of Same: No -: No myalgia, No arthralgia, No fever, No associated dyspnea, No associated chest pain Radiation: none Severity scale (0 -10): 8 Quality: aching Consistency: constant Associated Symptoms: denies: chest pain, shortness of breath, fever, myalgias, arthralgias, rash - Related Data Home Medications Medication Instructions Recorded Confirmed Last Taken Ibuprofen [Motrin 800 MG tab] 800 mg PO PRN PRN 05/21/21 05/21/21 Unknown Previous Rx's Medication Instructions Recorded Last Taken Type Zolpidem [Ambien] 5 mg PO QHS PRN tablet 04/05/21 Unknown Rx amLODIPine 10 mg PO QDAY tablet 04/05/21 Unknown Rx Docusate Sodium [Colace] 100 mg PO BID PRN #30 capsule 05/29/21 Unknown Rx Docusate Sodium [Colace] 100 mg PO DAILY #30 capsule 05/30/21 Unknown Rx Ferrous Sulfate [Feosol 325 MG tab] 325 mg PO TID #90 tablet 05/30/21 Unknown Rx Ibuprofen [Motrin 800 MG tab] 800 mg PO Q8H PRN #30 tablet 05/30/21 Unknown Rx amLODIPine 10 mg PO QDAY tablet 05/30/21 Unknown Rx oxyCODONE /ACETAMINOPHEN [Percocet 1 - 2 tab PO Q6H PRN #10 tablet 05/30/21 Unknown Rx 5/325 mg] Acetaminophen/Codeine [Tylenol 1 tab PO Q6H PRN #12 tab 06/04/21 Unknown Rx /Codeine # 3 tab] Allergies Allergy/AdvReac Type Severity Reaction Status Date / Time No Known Allergies Allergy Verified 03/03/21 10:02 ED Review of Systems ROS: Stated complaint: RT LEG PAIN Other details as noted in HPI Comment: All other systems reviewed and negative Constitutional: denies: chills, fever ENT: denies: congestion Respiratory: denies: cough, shortness of breath, SOB with exertion, SOB at rest, wheezing Cardiovascular: denies: chest pain, palpitations, dyspnea on exertion, orthopnea, edema, syncope, paroxysmal nocturnal dyspnea Gastrointestinal: denies: abdominal pain, nausea, vomiting Genitourinary: denies: urgency, dysuria Musculoskeletal: denies: back pain Neurological: denies: headache, weakness, numbness, paresthesias, abnormal gait ED Past Medical Hx - Past Medical History Hx Hypertension: Yes (no meds) Hx Heart Attack/AMI: No (Recent ETT/ECG; pt reports cardiac clearance) Hx Congestive Heart Failure: No Hx Diabetes: No Hx Sickle Cell Disease: No Hx Kidney Stones: No Hx Asthma: No Hx COPD: No Hx Tuberculosis: No Hx HIV: No Additional medical history: Anemia, uterine fibroids, vaginal delivery x 3 - Surgical History Additional Surgical History: tubal ligation 1995 - Social History Smoking Status: Former Smoker - Medications Home Medications: Home Medications Medication Instructions Recorded Confirmed Last Taken Type Zolpidem [Ambien] 5 mg PO QHS PRN tablet 04/05/21 Unknown Rx amLODIPine 10 mg PO QDAY tablet 04/05/21 Unknown Rx Ibuprofen [Motrin 800 MG tab] 800 mg PO PRN PRN 05/21/21 05/21/21 Unknown History Docusate Sodium [Colace] 100 mg PO BID PRN #30 capsule 05/29/21 Unknown Rx Docusate Sodium [Colace] 100 mg PO DAILY #30 capsule 05/30/21 Unknown Rx Ferrous Sulfate [Feosol 325 MG tab] 325 mg PO TID #90 tablet 05/30/21 Unknown Rx Ibuprofen [Motrin 800 MG tab] 800 mg PO Q8H PRN #30 tablet 05/30/21 Unknown Rx amLODIPine 10 mg PO QDAY tablet 05/30/21 Unknown Rx oxyCODONE /ACETAMINOPHEN [Percocet 1 - 2 tab PO Q6H PRN #10 tablet 05/30/21 Unknown Rx 5/325 mg] Acetaminophen/Codeine [Tylenol 1 tab PO Q6H PRN #12 tab 06/04/21 Unknown Rx /Codeine # 3 tab] ED Physical Exam - General Limitations: No Limitations General appearance: alert, in no apparent distress - Head Head exam: Present: atraumatic, normocephalic - Eye Eye exam: Present: normal appearance. Absent: conjunctival injection - Neck Neck exam: Present: normal inspection, full ROM. Absent: tenderness, lymphadenopathy - Respiratory Respiratory exam: Present: normal lung sounds bilaterally. Absent: respiratory distress, wheezes, rales, rhonchi, stridor, chest wall tenderness - Cardiovascular Cardiovascular Exam: Present: regular rate - GI/Abdominal GI/Abdominal exam: Present: soft, normal bowel sounds. Absent: distended, tenderness, guarding, rebound, rigid - Extremities Exam Extremities exam: Present: normal inspection, tenderness, normal capillary refill. Absent: pedal edema, joint swelling, calf tenderness - Expanded Lower Extremity Exam Right Upper Leg exam: Present: normal inspection, tenderness. Absent: swelling, ecchymosis, erythema Knee exam: Present: normal inspection, full ROM, tenderness. Absent: swelling, ecchymosis, erythema, effusion Lower Leg exam: Present: normal inspection, full ROM, tenderness. Absent: swelling, erythema, Judd's sign Neuro vascular tendon exam: Present: no vascular compromise. Absent: pulse deficit, abnormal cap refill, motor deficit, sensory deficit, tendon deficit, extremity cold to touch, pallor Gait: Positive: observed and limited by pain - Back Exam Back exam: Present: normal inspection. Absent: CVA tenderness (R), CVA tenderness (L) - Neurological Exam Neurological exam: Present: alert, oriented X3 - Psychiatric Psychiatric exam: Present: normal affect, normal mood - Skin Skin exam: Present: warm, dry, intact, normal color ED Course Vital Signs 06/04/21 13:38 Temperature 98.7 F Pulse Rate 74 Respiratory 18 Rate Blood Pressure 127/90 [Right] O2 Sat by Pulse 100 Oximetry ED Medical Decision Making - Radiology Data Radiology results: report reviewed Right lower extremity ultrasound: FINDINGS: RIGHT COMMON FEMORAL VEIN: Negative. RIGHT FEMORAL VEIN: Negative. RIGHT POPLITEAL VEIN: Negative. RIGHT CALF VEINS: Negative. ADDITIONAL FINDINGS: None. IMPRESSION: 1. No sonographic evidence for DVT in the right lower extremity. - Medical Decision Making 50-year-old black female with a past medical history of hypertension and anemia presents to the emergency department for evaluation of right leg pain since Friday. She states that she had a laparoscopic hysterectomy on May 29 then on Friday she developed pain to her right leg. She denies any injury or trauma but states this pain has been persistent mostly in the back of her knee that is rated 8 out of 10. She states that she has not had any chest pain, shortness of breath, or hemoptysis. She states that she does not have any increase in pain when she is walking. She denies any swelling to her leg. Right lower extremity ultrasound negative for DVT. Pain improved after medication patient will be discharged home with prescription for Tylenol 3 to use as needed for pain and advised to follow-up with primary care provider if no improvement or worsening symptoms. She verbalized understanding of and agreement with plan of care. Critical care attestation.: If time is entered above; I have spent that time in minutes in the direct care of this critically ill patient, excluding procedure time. ED Disposition Clinical Impression: Right leg pain Disposition: 01 HOME / SELF CARE / HOMELESS Is pt being admited?: No Does the pt Need Aspirin: No Condition: Stable Instructions: How to Use Cold Therapy, [id number], Musculoskeletal Pain, Pain Without a Known Cause Additional Instructions: Follow-up with primary care provider if no improvement or worsening symptoms. Return to the ER as needed Prescriptions: Acetaminophen/Codeine [Tylenol /Codeine # 3 tab] 1 tab PO Q6H PRN #12 tab PRN Reason: Pain , Severe (7-10) Referrals: TANNER OLMOS MD [Primary Care Provider] - 3-5 Days Time of Disposition: 18:37
[2021-06-04 19:00] VITALS: BP 141/89
== END 2021-06-04 18:59 | disposition home or self-care (01) ==
LOC: ED 11:26
DX: M79.604 Pain in right leg (principal); Z87.891 Personal history of nicotine dependence; I10 Essential (primary) hypertension
CPT/HCPCS: 99283